=== PATIENT | female | born 1960 | race Caucasian/White ===

== ENCOUNTER → 2018-04-20 | Outpatient (REF) | payer BC | LOC: M LAB REF 16:43 | DX: L02.214 Cutaneous abscess of groin (principal) | CPT/HCPCS: 87205 ==

== ENCOUNTER → 2019-06-05 | Outpatient (REF) | payer BC | LOC: M LAB REF 18:47 | PROVIDERS: ATTEND Ophthalmology | DX: L91.8 Other hypertrophic disorders of the skin (principal) ==

== ENCOUNTER → 2021-11-20 | Outpatient (CLI) | payer BC | LOC: M RAD 07:44 | PROVIDERS: ATTEND Registered Nurse | DX: Z12.2 Encounter for screening for malignant neoplasm of respiratory organs (principal); F17.201 Nicotine dependence, unspecified, in remission; R91.8 Other nonspecific abnormal finding of lung field ==

== ENCOUNTER → 2021-12-03 | Outpatient (CLI) | payer BC ==
[~2021-12-03] MED LIST: ALBU8.5H INH; ARNU1INH INH; ATOR1TAB19 PO; AZEL0.055 NARES; D31000TA2 PO; INVO100T PO; LISI5TAB11 PO; METF10004 PO; OMEP-173 PO
== END ==
LOC: M LABSMTC 09:11
PROVIDERS: ATTEND Anesthesiology
DX: Z01.812 Encounter for preprocedural laboratory examination (principal); Z20.822 Contact with and (suspected) exposure to COVID-19

== ENCOUNTER 2021-12-08 14:34 | Day surgery (SDC) | payer BC ==
[~2021-12-08] VITALS: Ht 167.6 cm; Wt 111.1 kg
[~2021-12-08 14:34] MED LIST changes: +LIDOCAINE 1% MDV 20ML VIAL SQ PRN; +LR 1,000 ML IV ONE
[2021-12-08] MEDS ORDERED: BUPIVACAINE HCL 0.25% 30ML VIAL As Ordered ONE (19:09)
[2021-12-08] MEDS ORDERED: MIDAZOLAM INJ 2MG/2ML VIAL (J2250 PER 1MG) As Ordered ONE (19:43)
[2021-12-08] MEDS ORDERED: propofoL 200 MG/20 ML VIAL As Ordered ONE ×2 (19:43→20:02)
[2021-12-08] MEDS ORDERED: CHLOROPROCAINE PRES. FREE 2% 20ML VIAL As Ordered ONE (19:43)
[2021-12-08] MEDS ORDERED: fentaNYL 100 MCG/2 ML INJECTION As Ordered ONE (19:43)
[2021-12-08] MEDS ORDERED: ePHEDrine SULFATE 25 MG/5 ML(5MG/ML) SYRINGE As Ordered ONE (19:49)
[2021-12-08] MEDS ORDERED: BUPIVACAINE LIPOSOME/PF 1.3% 20ML VIAL (13.3MG/ML)(EXPAREL)(C9290 PER1MG) As Ordered ONE (20:05)
[2021-12-08] MEDS ORDERED: ONDANSETRON 4MG/2ML VIAL IV PRN (20:40)
[2021-12-08] MEDS ORDERED: fentaNYL 100 MCG/2 ML INJECTION IV PRN (20:40)
[2021-12-08] MEDS ORDERED: LR 1,000 ML IV SCH (20:40)
[2021-12-08] MEDS ORDERED: oxyCODONE 5MG TAB PO PRN (20:40)
[2021-12-08] MEDS ORDERED: METOCLOPRAMIDE INJ 10MG/2ML VIAL (J2765 PER 1) IV PRN (20:40)
[2021-12-08 21:11] VITALS: BP 138/71
== END 2021-12-08 21:40 | disposition home or self-care (01) ==
LOC: M SDC 14:34
PROVIDERS: ATTEND Surgery
DX: K62.89 Other specified diseases of anus and rectum (principal); K60.2 Anal fissure, unspecified; E11.9 Type 2 diabetes mellitus without complications; I10 Essential (primary) hypertension; K21.9 Gastro-esophageal reflux disease without esophagitis; J45.909 Unspecified asthma, uncomplicated; E78.5 Hyperlipidemia, unspecified; G47.33 Obstructive sleep apnea (adult) (pediatric); Z79.84 Long term (current) use of oral hypoglycemic drugs; Z79.899 Other long term (current) drug therapy; Z79.51 Long term (current) use of inhaled steroids; Z88.2 Allergy status to sulfonamides; Z87.891 Personal history of nicotine dependence
CPT/HCPCS: 46200; 88305; C9290; J2250; J2400; J3010

== ENCOUNTER → 2024-10-11 | Outpatient (CLI) | payer BC ==
[~2024-10-11] MED LIST changes: -AZEL0.055 NARES; +AZEL1SPR4 NARES; -D31000TA2 PO; -LIDOCAINE 1% MDV 20ML VIAL SQ PRN; -LR 1,000 ML IV ONE; +VITA100093 PO
== END ==
LOC: M RAD 15:48
PROVIDERS: ATTEND Nurse Practitioner Adult Health
DX: Z12.2 Encounter for screening for malignant neoplasm of respiratory organs (principal); F17.211 Nicotine dependence, cigarettes, in remission

== ENCOUNTER → 2024-12-26 | Outpatient (CLI) | payer BC | LOC: M WUC 10:36 | PROVIDERS: ATTEND Physician Assistant Medical | DX: M25.512 Pain in left shoulder (principal); M25.532 Pain in left wrist ==